=== PATIENT | female | born 1970 | race Caucasian/White ===

== ENCOUNTER 2017-02-16 11:17 | Emergency (ER) | payer OTHER ==
[~2017-02-16] VITALS: Ht 157.5 cm; Wt 110.0 kg
[~2017-02-16 11:17] MED LIST: ALBUAER3 INH; ATOR40TA16 PO; GABA600T PO; LEVO.125 PO; LISI10TA PO; LORA-373 PO; MONT10TA4 PO; NEBULIZER1 MI1; PARO10TA2 PO
[2017-02-16 11:19] VITALS: BP 153/86; PULSE 114; RESP 18; TEMP 98.2; O2SAT 98
[2017-02-16 12:02] LABS: BACTERIA, URINE OCC /hpf; BLOOD, URINE SMALL (NEG); COMMENT (UR) CULT NOT INDICATED; CULTURE IF INDICATED CULT NOT INDICATED; GLUCOSE,URINE NEG (NEG); GRANULAR CAST, URINE 2 /lpf; HYALINE CAST, URINE 14 /lpf (RARE); KETONE, URINE NEG (NEG); MUCUS URINE MANY /lpf (OCC); NITRITE,URINE NEG (NEG); PH, URINE 5.5 (5.0-8.5); SQUAMOUS EPITHELIAL CELL URINE 21 /hpf (0-5); URINE COLOR DARK-YELLOW (YELLW/STRAW)
[2017-02-16] MEDS ORDERED: SODIUM CHLOR 0.9% 1000 ML INJ 1,000 ML IV SCH (12:04)
[2017-02-16 12:12] LABS: AUTOMATED NEUTROPHIL # 7.1 TH/MM3 (1.8-7.7); BASOPHIL # 0.1 TH/MM3 (0-0.2); BASOPHIL % 0.5 % (0.0-2.0); EOSINOPHIL # 0.2 TH/MM3 (0-0.4); EOSINOPHIL % 2.5 % (0.0-4.0); HEMATOCRIT 37.2 % (35.0-46.0); HEMO FLAGS DIFF FINAL; LYMPH % 19.6 % (9.0-44.0); LYMPHOCYTE # 1.9 TH/MM3 (1.0-4.8); MEAN CELL VOLUME 81.9 FL (80.0-100.0); MEAN CORPUSCULAR HEMOGLOBIN 25.9 PG (27.0-34.0); MEAN CORPUSCULAR HGB CONC 31.6 % (32.0-36.0); MONO % 3.5 % (0.0-8.0); NEUT % 73.9 % (16.0-70.0); PLATELET COUNT 332 TH/MM3 (150-450); RED BLOOD COUNT 4.54 MIL/MM3 (4.00-5.30); RED CELL DISTRIBUTION WIDTH 16.4 % (11.6-17.2); WHITE BLOOD COUNT 9.6 TH/MM3 (4.0-11.0)
--- NOTE | 2017-02-16 12:12 | PD ---
HPI Chief Complaint: Flank/Kidney Pain Time Seen by Provider: 12:01 Travel History International Travel<30 days: No Contact w/Intl Traveler<30days: No Traveled to known affect area: No History of Present Illness HPI 46-year-old female complaining of right flank pain with radiation to the right side abdomen. Patient states that the symptoms started 2 days ago. Patient states the pain is severe sharp pain started a right flank area with radiation to the right lower quadrant of the abdomen. Patient denies any dysuria or frequency. Patient denies any vaginal discharge or bleeding. Patient denies any fever chills. Patient denies any chance of being . Patient status post tubal ligation. Patient has history of kidney stone in the past. Patient states that she had surgery by urologist out of the area in the past. On a scale of 1-10 the pain is a 9. PFSH Past Medical History Asthma: Yes Anxiety: Yes High Cholesterol: Yes Hypertension: Yes Kidney Stones: Yes Thyroid Disease: Yes ?: Not Past Surgical History Cholecystectomy: Yes Genitourinary Surgery: Yes (CYSTO X 2) Other Surgery: Yes (THYROIDECTOMY) Social History Alcohol Use: No Tobacco Use: No Substance Use: No Allergies-Medications (Allergen,Severity, Reaction): Coded Allergies: Erythromycin (Verified Allergy, Unknown, childhood, 01/18/17) Penicillin (Verified Allergy, Unknown, childhood allergy, 01/18/17) Sulfa (Verified Allergy, Unknown, swelling all over , 01/18/17) Reported Meds & Prescriptions Reported Meds & Active Scripts Active Synthroid (Levothyroxine Sodium) 125 Mcg Tab 125 Mcg PO DAILY Atorvastatin (Atorvastatin Calcium) 40 Mg Tab 40 Mg PO HS Lorazepam 0.5 Mg Tab 0.5 Mg PO TID PRN Nebulizer 1 Mis Mis 1 Ea .ROUTE DIRECTED Proair Hfa 8.5 GM Inh (Albuterol Sulfate) 90 Mcg/Act Aer 2 Puff INH Q6H PRN 108 mcg/actuation Lisinopril-Hctz 10-12.5 Mg Tab 1 Tab PO DAILY Paroxetine (Paroxetine HCl) 10 Mg Tab 10 Mg PO DAILY Montelukast (Montelukast Sodium) 10 Mg Tab 10 Mg PO HS Gabapentin 600 Mg Tab 600 Mg PO TID Review of Systems General / Constitutional: No: Fever Eyes: No: Visual changes HENT: No: Headaches Cardiovascular: No: Chest Pain or Discomfort Respiratory: No: Shortness of Breath Gastrointestinal: No: Abdominal Pain Genitourinary: No: Dysuria Musculoskeletal: No: Pain Skin: No Rash Neurologic: No: Weakness Psychiatric: No: Depression Endocrine: No: Polydipsia Hematologic/Lymphatic: No: Easy Bruising Physical Exam Narrative GENERAL: Well-nourished, well-developed patient. SKIN: Focused skin assessment warm/dry. HEAD: Normocephalic. EYES: No scleral icterus. No injection or drainage. NECK: Supple, trachea midline. No JVD or lymphadenopathy. CARDIOVASCULAR: Regular rate and rhythm without murmurs, gallops, or rubs. RESPIRATORY: Breath sounds equal bilaterally. No accessory muscle use. GASTROINTESTINAL: Abdomen soft, nondistended. Patient has moderate tenderness on palpation right lower quadrant of the abdomen. No rebound tenderness. No mass. MUSCULOSKELETAL: No cyanosis, or edema. BACK: Patient has moderate tenderness on palpation right flank area and right low quadrant of the abdomen. No rebound tenderness. No mass.. Data Data Last Documented VS Vital Signs Date Time Temp Pulse Resp B/P Pulse Ox O2 Delivery O2 Flow Rate FiO2 02/16/17 11:19 98.2 114 18 153/86 98 Orders Urinalysis - C+S If Indicated (02/16/17 11:28) Complete Blood Count With Diff (02/16/17 11:28) Basic Metabolic Panel (Bmp) (02/16/17 11:28) Iv Access Insert/Monitor (02/16/17 12:04) Ecg Monitoring (02/16/17 12:04) Oximetry (02/16/17 12:04) Morphine Inj (Morphine Inj) (02/16/17 12:15) Ondansetron Inj (Zofran Inj) (02/16/17 12:15) Sodium Chlor 0.9% 1000 Ml Inj (Ns 1000 M (02/16/17 12:04) Ketorolac Inj (Toradol Inj) (02/16/17 12:15) Ct Abd/Pel W/O Iv Contrast (02/16/17 12:31) Labs Laboratory Tests Test 02/16/17 02/16/17 11:35 11:42 Urine Color DARK-YELLOW Urine Turbidity HAZY Urine pH 5.5 Urine Specific [place] 1.035 Urine Protein 30 mg/dL Urine Glucose (UA) NEG mg/dL Urine Ketones NEG mg/dL Urine Occult Blood SMALL Urine Nitrite NEG Urine Bilirubin NEG Urine Urobilinogen 2.0 MG/DL Urine Leukocyte Esterase NEG Urine RBC LESS THAN 1 /hpf Urine WBC 4 /hpf Urine Squamous Epithelial 21 /hpf Cells Urine Bacteria OCC /hpf Urine Hyaline Casts 14 /lpf Urine Granular Casts 2 /lpf Urine Mucus MANY /lpf Microscopic Urinalysis Comment CULT NOT INDICATED White Blood Count 9.6 TH/MM3 Red Blood Count 4.54 MIL/MM3 Hemoglobin 11.8 GM/DL Hematocrit 37.2 % Mean Corpuscular Volume 81.9 FL Mean Corpuscular Hemoglobin 25.9 PG Mean Corpuscular Hemoglobin 31.6 % Concent Red Cell Distribution Width 16.4 % Platelet Count 332 TH/MM3 Mean Platelet Volume 8.1 FL Neutrophils (%) (Auto) 73.9 % Lymphocytes (%) (Auto) 19.6 % Monocytes (%) (Auto) 3.5 % Eosinophils (%) (Auto) 2.5 % Basophils (%) (Auto) 0.5 % Neutrophils # (Auto) 7.1 TH/MM3 Lymphocytes # (Auto) 1.9 TH/MM3 Monocytes # (Auto) 0.3 TH/MM3 Eosinophils # (Auto) 0.2 TH/MM3 Basophils # (Auto) 0.1 TH/MM3 CBC Comment DIFF FINAL Differential Comment Sodium Level 138 MEQ/L Potassium Level 4.2 MEQ/L Chloride Level 103 MEQ/L Carbon Dioxide Level 30.1 MEQ/L Anion Gap 5 MEQ/L Blood Urea Nitrogen 12 MG/DL Creatinine 0.82 MG/DL Estimat Glomerular Filtration 75 ML/MIN Rate Random Glucose 93 MG/DL Calcium Level 9.7 MG/DL [facility] Medical Decision Making Medical Screen Exam Complete: Yes Emergency Medical Condition: Yes Interpretation(s) Last Impressions Abdomen/Pelvis CT 02/16/17 1231 Signed Impressions: Service Date/Time: Thursday, February 16, 2017 13:08 - CONCLUSION: 1. No acute inflammatory process. 2. Punctate nonobstructing left renal calculus. 3. Cholecystectomy. 4. Uterus is slightly heterogeneous. Rudy Ang MD 1355 PM. CBC within normal limit. BMP within normal limits. UA positive for bacteria. Differential Diagnosis Differential diagnosis including nephrolithiasis, pyelonephritis, colitis, appendicitis, ovarian cyst, ovarian torsion, ectopic . Narrative Course 46-year-old female with right flank pain of right lower quadrant abdominal pain. History kidney stone. Normal saline solution 1 25 cc an hour. Morphine 2 mg IV. Toradol 30 mg IV. Zofran 4 mg IV. Diagnosis Primary Impression: Right flank pain Patient Instructions: General Instructions Additional Instructions: Take medications as needed for pain. Follow-up with personal physician and urologist. Return if worse. Med/Other Pt SpecificInfo: Prescription(s) given Scripts Cyclobenzaprine (Flexeril)10 Mg Tab10 Mg PO TID #60 TAB Prov:Kwan Seymour MD 02/16/17 Meloxicam (Mobic)15 Mg Tab15 Mg PO DAILY #20 TAB Prov:Kwan Seymour MD 02/16/17 Disposition: 01 DISCHARGE HOME Condition: Stable Kwan Seymour MD Feb 16, 2017 12:12
[2017-02-16] MEDS ORDERED: ONDANSETRON HCL 4 MG/2 ML VIAL IVP ONE (12:15)
[2017-02-16] MEDS ORDERED: KETOROLAC TROMETHAMINE 30 MG/ML (IVP) VIAL IVP ONE (12:15)
[2017-02-16] MEDS ORDERED: MORPHINE SULFATE 4 MG/ML INJ IV PUSH ONE (12:15)
[2017-02-16 12:20] LABS: BICARBONATE 30.1 MEQ/L (21.0-32.0); POTASSIUM 4.2 MEQ/L (3.5-5.1)
--- NOTE | 2017-02-16 13:41 | RADRPT ---
EXAM DATE/TIME: 02/16/2017 13:08 [facility] COMPARISON: No previous studies available for comparison. INDICATIONS : Right flank pain. ORAL CONTRAST: No oral contrast ingested. RADIATION DOSE: 33.7 CTDIvol (mGy) MEDICAL HISTORY : Renal calculi. Hypertension, Asthma SURGICAL HISTORY : Thyroidectomy. ENCOUNTER: Initial ACUITY: 1 day PAIN SCALE: 8/10 LOCATION: Right flank TECHNIQUE: Volumetric scanning of the abdomen and pelvis was performed. Using automated exposure control and ad justment of the mA and/or kV according to patient size, radiation dose was kept as low as reasonably achievable to obtain optimal diagnostic quality images. FINDINGS: LOWER LUNGS: The visualized lower lungs are clear. LIVER: Homogeneous density without lesion. There is no dilation of the biliary tree. Cholecystectomy clips. SPLEEN: Normal size without lesion. PANCREAS: Within normal limits. KIDNEYS: Normal in size and shape. There is no mass, stone, or hydronephrosis on the right. Punctate nonobstr ucting left renal calculus measuring 1 mm. ADRENAL GLANDS: Within normal limits. VASCULAR: There is no aortic aneurysm. BOWEL/MESENTERY: The stomach, small bowel, and colon demonstrate no acute abnormality. There is no free intraperitone al air or fluid. Normal appendix. ABDOMINAL WALL: Within normal limits. RETROPERITONEUM: There is no lymphadenopathy. BLADDER: No wall thickening or mass. REPRODUCTIVE: Uterus is slightly heterogeneous. INGUINAL: There is no lymphadenopathy or hernia. MUSCULOSKELETAL: Within normal limits for patient age. CONCLUSION: 1. No acute inflammatory process. 2. Punctate nonobstructing left renal calculus. 3. Cholecystectomy. 4. Uterus is slightly heterogeneous. Rudy Ang MD on February 16, 2017 at 13:34 Board Certified Radiologist. This report was verified electronically.
[2017-02-16] MEDS ORDERED: MOBI15TA PO (13:59)
[2017-02-16] MEDS ORDERED: CYCL1TAB29 PO (14:00)
== END 2017-02-16 15:12 | disposition home or self-care (01) ==
LOC: NEPD 11:17
DX: R10.9 Unspecified abdominal pain (principal)
CPT/HCPCS: 74176; 80048; 81001; 85025; 96374; 96375; 99285; J1885; J2270; J2405; J7030

== ENCOUNTER → 2017-03-12 | Outpatient (CLI) | payer OTHER ==
[~2017-03-12] MED LIST changes: +CYCL1TAB29 PO; +MELO-1 PO; +MOBI15TA PO
--- NOTE | 2017-03-12 14:09 | RADRPT ---
EXAM DATE/TIME: 03/12/2017 13:12 [facility] COMPARISON: No previous studies available for comparison. INDICATIONS : Fell on knees 1 month ago, pain with weight bearing and motion. MEDICAL HISTORY : None. SURGICAL HISTORY : None. ENCOUNTER: Initial ACUITY: 1 month PAIN SCORE: 2/10 LOCATION: Right knee. FINDINGS: No definite fractures, or dislocations are identified. No definite lytic or sclerotic lesion is seen . The joint spaces are well maintained. CONCLUSION: Unremarkable study. Andreina Hunter MD on March 12, 2017 at 14:07 Board Certified Radiologist. This report was verified electronically.
--- NOTE | 2017-03-12 15:13 | RADRPT ---
EXAM DATE/TIME: 03/12/2017 13:11 [facility] COMPARISON: No previous studies available for comparison. INDICATIONS : Fell on knees 1 month ago, pain and swelling, difficulty with weight bearing. MEDICAL HISTORY : None. SURGICAL HISTORY : None. ENCOUNTER: Initial ACUITY: 1 month PAIN SCORE: 10/10 LOCATION: Left knee. FINDINGS: No definite fractures, or dislocations are identified. No definite lytic or sclerotic lesion is seen . The joint spaces are well maintained. CONCLUSION: Unremarkable study. Andreina Hunter MD on March 12, 2017 at 15:11 Board Certified Radiologist. This report was verified electronically.
== END ==
LOC: HRAD 12:40
PROVIDERS: ATTEND Family Medicine
DX: M25.562 Pain in left knee (principal); M25.561 Pain in right knee
CPT/HCPCS: 73564

== ENCOUNTER → 2017-05-19 | Outpatient (CLI) | payer OTHER ==
[~2017-05-19] MED LIST changes: -ATOR40TA16 PO; -MOBI15TA PO
--- NOTE | 2017-05-19 11:20 | RADRPT ---
EXAM DATE/TIME: 05/19/2017 10:28 [facility] COMPARISON: No previous studies available for comparison. INDICATIONS : Internal derangement. Patient fell a few moths ago. Has global knee pain and swelling. MEDICAL HISTORY : Carcinoma, thyroid. Hypertension. SURGICAL HISTORY : Cholecystectomy. Thyroidectomy. Lymph nodes removed from underarms. ENCOUNTER: Subsequent ACUITY: 2 months PAIN SCORE: 4/10 LOCATION: Left knee. TECHNIQUE: Multiplanar, multisequence MRI examination was performed without contrast. FINDINGS: There is minimal inhomogeneous marrow in the distal femur and proximal tibia. The the edema in the t ibial epiphysis adjacent to the articular surface could be evidence for contusion. This does extend to the articular surface medial plateau. There is no evidence for joint effusion. The signal intensity in the lateral meniscus is normal. Signal intensity medial meniscus is normal. The anterior cruciate is intact from origin to insertion. The posterior cruciate is intact from origin to insertion. The medial collateral ligament complex is intact. There is very minimal edema at the origin of the lateral collateral ligament complex on the femoral c ondyle. The patellofemoral compartment shows some mild chondral malacia patella medial post facet of the hackett lla. Mild edema is present in the lateral patellar retinaculum. CONCLUSION: Negative for internal derangement. Articular cartilage is reasonably well-preserved with possible bone bruising tibial plateau. Minimal chondra malacia patella medial facet Minimal increased signal lateral patellar retinaculum. Michael Ma MD FACR on May 19, 2017 at 11:13 Board Certified Radiologist. This report was verified electronically.
== END ==
LOC: HRAD 09:57
PROVIDERS: ATTEND Family Medicine
DX: M23.90 Unspecified internal derangement of unspecified knee (principal)
CPT/HCPCS: 73721

== ENCOUNTER 2018-01-19 12:38 | Observation (INO) | payer OTHER ==
[~2018-01-19] VITALS: Ht 157.5 cm; Wt 115.0 kg
[~2018-01-19 12:38] MED LIST changes: +ALBU0.08 NEB; +CYCL10TA PO; -CYCL1TAB29 PO; -LORA-373 PO; +LORA0.5T PO; -MELO-1 PO; +MELO15TA20 PO; +METF500T PO
[2018-01-19 12:52] VITALS: BP 114/64; PULSE 110; RESP 16; TEMP 98.7; O2SAT 96
--- NOTE | 2018-01-19 13:00 | PD ---
HPI Chief Complaint: Service Writer Problem/Complaint Time Seen by Provider: 12:58 Travel History International Travel<30 days: No Contact w/Intl Traveler<30days: No Traveled to known affect area: No History of Present Illness HPI 47-year-old female patient of Dr. Almanzar, with a history of lower abdominal cramping, and intermittent vaginal bleeding for the past 2-1/2 months. Patient states in the last 24 hours she has gotten much worse cramping with increased vaginal bleeding with passing of clots. Patient has been taking progesterone per Dr. Almanzar's office, as well as recent ultrasound showing multiple fibroids. Patient was scheduled for a ureteroscopy on 25 January. Pain currently is 8 out of 10. She has gone through 3-1/2 large pads since [address] Mohamud office, and was referred here for evaluation. Patient denies nausea, vomiting, urinary symptoms, or fever. Cramping is in the right lower pelvic region. Patient is allergic to sulfa, amoxicillin, erythromycin, and penicillin. PFSH Past Medical History Asthma: Yes Anxiety: Yes High Cholesterol: Yes Cerebrovascular Accident: Yes Hypertension: Yes Kidney Stones: Yes Thyroid Disease: Yes ?: Not Past Surgical History Cholecystectomy: Yes Genitourinary Surgery: Yes (CYSTO X 2) Other Surgery: Yes (THYROIDECTOMY) Social History Alcohol Use: No Tobacco Use: No Substance Use: No Allergies-Medications (Allergen,Severity, Reaction): Coded Allergies: amoxicillin (Unverified Allergy, Intermediate, HIVES, 01/19/18) Sulfa (Sulfonamide Antibiotics) (Unverified Allergy, Unknown, swelling all over , 01/19/18) erythromycin base (Unverified Allergy, Unknown, childhood, 01/19/18) penicillin G (Unverified Allergy, Unknown, childhood allergy, 01/19/18) hydromorphone (Verified Adverse Reaction, Mild, ITCHING/FLUSHING OF SKIN, 01/19/18) Reported Meds & Prescriptions Reported Meds & Active Scripts Active Lorazepam 0.5 Mg Tab 0.5 Mg PO TID PRN Albuterol Neb (Albuterol Sulfate) 2.5 Mg/3 Ml Neb 2.5 Mg NEB Q4HR NEB PRN Lisinopril-Hctz 10-12.5 Mg Tab 1 Tab PO DAILY Paroxetine (Paroxetine HCl) 10 Mg Tab 10 Mg PO DAILY Proair Hfa 8.5 GM Inh (Albuterol Sulfate) 90 Mcg/Act Aer 2 Puff INH Q6H PRN 108 mcg/actuation Meloxicam 15 Mg Tab 15 Mg PO DAILY Nebulizer 1 Mis Mis 1 Ea .ROUTE DIRECTED Montelukast (Montelukast Sodium) 10 Mg Tab 10 Mg PO HS Reported Levothyroxine (Levothyroxine Sodium) 150 Mcg Tab 150 Mcg PO DAILY Review of Systems Except as stated in HPI: all other systems reviewed are Neg General / Constitutional: No: Fever Eyes: No: Visual changes HENT: No: Headaches Cardiovascular: No: Chest Pain or Discomfort Respiratory: No: Shortness of Breath Gastrointestinal: No: Abdominal Pain Genitourinary: Positive: Pelvic Pain, Vaginal Bleeding, No: Urgency, Frequency , Dysuria Musculoskeletal: No: Pain Skin: No Rash Neurologic: No: Weakness Psychiatric: No: Depression Endocrine: No: Polydipsia Hematologic/Lymphatic: No: Easy Bruising Physical Exam Narrative GENERAL: Moderately obese patient in moderate discomfort. SKIN: Warm and dry. Normal color. Normal turgor. No diaphoresis. HEAD: Atraumatic. Normocephalic. EYES: Pupils equal and round. No scleral icterus. No injection or drainage. ENT: No nasal bleeding or discharge. Mucous membranes pink and moist. Pharynx is clear. Airways patent. NECK: Trachea midline. Supple and nontender. CARDIOVASCULAR: Regular rate and rhythm. RESPIRATORY: No accessory muscle use. Clear to auscultation. Breath sounds equal bilaterally. GASTROINTESTINAL: Abdomen soft, moderate nonspecific suprapubic discomfort with palpation, nondistended. No CVA tenderness. Hepatic and splenic margins not palpable. MUSCULOSKELETAL: Extremities without clubbing, cyanosis, or edema. No obvious deformities. NEUROLOGICAL: Awake and alert. No obvious cranial nerve deficits. Motor grossly within normal limits. Five out of 5 muscle strength in the arms and legs. Normal speech. PSYCHIATRIC: Appropriate mood and affect; insight and judgment normal. Data Data Last Documented VS Vital Signs Date Time Temp Pulse Resp B/P (MAP) Pulse Ox O2 Delivery O2 Flow Rate FiO2 01/19/18 14:55 99 16 136/63 (87) 100 Room Air 01/19/18 12:52 98.7 Orders Orders Complete Blood Count With Diff (01/19/18 13:06) Comprehensive Metabolic Panel (01/19/18 13:06) Iv Access Insert/Monitor (01/19/18 13:06) Ecg Monitoring (01/19/18 13:06) Sodium Chloride 0.9% Flush (Ns Flush) (01/19/18 13:15) Sodium Chlor 0.9% 1000 Ml Inj (Ns 1000 M (01/19/18 13:06) Ondansetron Odt (Zofran Odt) (01/19/18 13:15) Type And Screen (01/19/18 13:06) Red Blood Cells (Rbc) (01/19/18 13:06) Morphine Inj (Morphine Inj) (01/19/18 13:15) Hydromorphone Pf Inj (Dilaudid Pf Inj) (01/19/18 15:00) Medroxyprogesterone Acetate (Provera) (01/19/18 15:00) Hydromorphone Pf Inj (Dilaudid Pf Inj) (01/19/18 15:15) Diphenhydramine Inj (Benadryl Inj) (01/19/18 15:45) Admit Order (Ed Use Only) (01/19/18 15:55) Labs Laboratory Tests Test 01/19/18 13:25 White Blood Count 10.5 TH/MM3 Red Blood Count 4.50 MIL/MM3 Hemoglobin 11.6 GM/DL Hematocrit 36.2 % Mean Corpuscular Volume 80.4 FL Mean Corpuscular Hemoglobin 25.8 PG Mean Corpuscular Hemoglobin Concent 32.1 % Red Cell Distribution Width 15.9 % Platelet Count 375 TH/MM3 Mean Platelet Volume 8.2 FL Neutrophils (%) (Auto) 76.3 % Lymphocytes (%) (Auto) 17.1 % Monocytes (%) (Auto) 3.2 % Eosinophils (%) (Auto) 2.5 % Basophils (%) (Auto) 0.9 % Neutrophils # (Auto) 8.0 TH/MM3 Lymphocytes # (Auto) 1.8 TH/MM3 Monocytes # (Auto) 0.3 TH/MM3 Eosinophils # (Auto) 0.3 TH/MM3 Basophils # (Auto) 0.1 TH/MM3 CBC Comment DIFF FINAL Differential Comment Blood Urea Nitrogen 13 MG/DL Creatinine 0.83 MG/DL Random Glucose 129 MG/DL Total Protein 7.8 GM/DL Albumin 3.4 GM/DL Calcium Level 9.3 MG/DL Alkaline Phosphatase 105 U/L Aspartate Amino Transf (AST/SGOT) 8 U/L Alanine Aminotransferase (ALT/SGPT) 20 U/L Total Bilirubin 0.2 MG/DL Sodium Level 139 MEQ/L Potassium Level 4.0 MEQ/L Chloride Level 105 MEQ/L Carbon Dioxide Level 26.0 MEQ/L Anion Gap 8 MEQ/L Estimat Glomerular Filtration Rate 73 ML/MIN MDM Medical Decision Making Medical Screen Exam Complete: Yes Emergency Medical Condition: Yes Differential Diagnosis Irregular uterine bleeding. Fibroids. Passing of clots. Pelvic pain. Narrative Course Patient appears medically stable at time of exam. Labs ordered including CBC, CMP, coagulation studies, and urinalysis. IV access is obtained, and patient is given 1000 mL of normal saline bolus. Patient is given 4 mg morphine IV as well as 4 mg Zofran ODT p.o. Type and screen of 2 units is ordered. Calls placed to Dr. Batista office to discuss the patient. CBC shows no significant anemia with normal hemoglobin of 11.6, hematocrit 36.2. Platelets are normal at 375. There is no significant white count. CMP is unremarkable except for random glucose of 129, GFR 73, AST is 80 otherwise no significant findings. Patient is given Dilaudid 1 mg IV. Patient is given 10 mg medroxyprogesterone p.o. Page is sent for Dr. Almanzar for call back. Patient is discussed with Dr. Almanzar, who recommends admission for the patient and possible D&C this evening. Patient is made n.p.o. and admitted. Diagnosis Primary Impression: Abnormal vaginal bleeding Admitting Information Admitting Physician Requests: Admit Condition: Stable Arden Stout January 19, 2018 13:00
[2018-01-19] MEDS ORDERED: SODIUM CHLOR 0.9% 1000 ML INJ 1,000 ML IV ONE (13:06)
[2018-01-19] MEDS ORDERED: MORPHINE SULFATE 4 MG/ML INJ IV PUSH ONE (13:15)
[2018-01-19] MEDS ORDERED: ONDANSETRON ODT 4 MG TAB PO ONE (13:15)
[2018-01-19] MEDS ORDERED: SODIUM CHLORIDE 0.9% FLUSH 10 ML FLUSH IVF PRN (13:15)
[2018-01-19 13:24] VITALS: BP 122/59; PULSE 94; RESP 16; O2SAT 99
[2018-01-19 13:43] LABS: BASOPHIL # 0.1 TH/MM3 (0-0.2); BASOPHIL % 0.9 % (0.0-2.0); EOSINOPHIL # 0.3 TH/MM3 (0-0.4); EOSINOPHIL % 2.5 % (0.0-4.0); HEMATOCRIT 36.2 % (35.0-46.0); HEMOGLOBIN 11.6 GM/DL (11.6-15.3); LYMPH % 17.1 % (9.0-44.0); LYMPHOCYTE # 1.8 TH/MM3 (1.0-4.8); MEAN CELL VOLUME 80.4 FL (80.0-100.0); MEAN CORPUSCULAR HEMOGLOBIN 25.8 PG (27.0-34.0); MEAN CORPUSCULAR HGB CONC 32.1 % (32.0-36.0); MEAN PLATELET VOLUME 8.2 FL (7.0-11.0); MONO % 3.2 % (0.0-8.0); MONOCYTE # 0.3 TH/MM3 (0-0.9); NEUT % 76.3 % (16.0-70.0); PLATELET COUNT 375 TH/MM3 (150-450); RED CELL DISTRIBUTION WIDTH 15.9 % (11.6-17.2); WHITE BLOOD COUNT 10.5 TH/MM3 (4.0-11.0)
[2018-01-19 14:06] LABS: ALBUMIN 3.4 GM/DL (3.4-5.0); AST (GOT) 8 U/L (15-37); BLOOD UREA NITROGEN 13 MG/DL (7-18); CALCIUM 9.3 MG/DL (8.5-10.1); CHLORIDE 105 MEQ/L (98-107); CREATININE 0.83 MG/DL (0.50-1.00); GLOMERULAR FILTRATION RATE 73 ML/MIN (>89); GLUCOSE,RANDOM 129 MG/DL (74-106); SODIUM (NA) 139 MEQ/L (136-145)
[2018-01-19 14:08] LABS: ALT (GPT) 20 U/L (10-53)
[2018-01-19 14:09] LABS: ALKALINE PHOSPHATASE 105 U/L (45-117); TOTAL BILIRUBIN ADULT 0.2 MG/DL (0.2-1.0); TOTAL PROTEIN 7.8 GM/DL (6.4-8.2)
[2018-01-19 14:55] VITALS: BP_SYST 127; BP_SYST 136; BP_DIAS 63; BP_DIAS 65; PULSE 99; RESP 16; O2SAT 100
[2018-01-19] MEDS ORDERED: HYDROmorphone HCL PF 1 MG/ML VIAL IV PUSH ONE (15:00)
[2018-01-19] MEDS ORDERED: medroxyPROGESTERone ACETATE 10 MG TAB PO ONE (15:00)
[2018-01-19] MEDS ORDERED: HYDROmorphone HCL PF 2 MG/ML VIAL IV PUSH ONE (15:15)
[2018-01-19] MEDS ORDERED: LEVO150T7 PO (15:34)
[2018-01-19] MEDS ORDERED: diphenhydrAMINE HCL 50 MG/ML VIAL IV PUSH ONE (15:45)
[2018-01-19 19:54] VITALS: BP 111/59; PULSE 86; RESP 16; O2SAT 98
[2018-01-19 20:18] VITALS: BP 115/95; PULSE 98; RESP 16; TEMP 98.1; O2SAT 98
[2018-01-19] MEDS: ACETAMINOPHEN/HYDROcodone 325 MG/7.5 MG TAB PO PRN (20:59)
[2018-01-19] MEDS ORDERED: ZOLPIDEM TARTRATE 5 MG TAB PO PRN (21:00)
[2018-01-20] VITALS: BP 97/52; PULSE 77; RESP 20; TEMP 98.1; O2SAT 97
[2018-01-20 04:00] VITALS: BP 118/56; PULSE 84; RESP 20; TEMP 98.2; O2SAT 98
[2018-01-20] MEDS: ACETAMINOPHEN/HYDROcodone 325 MG/7.5 MG TAB PO PRN ×2 (06:15→11:52)
[2018-01-20 08:06] LABS: AUTOMATED NEUTROPHIL # 6.3 TH/MM3 (1.8-7.7); BASOPHIL # 0.1 TH/MM3 (0-0.2); BASOPHIL % 0.9 % (0.0-2.0); EOSINOPHIL # 0.3 TH/MM3 (0-0.4); EOSINOPHIL % 3.7 % (0.0-4.0); HEMATOCRIT 33.4 % (35.0-46.0); HEMOGLOBIN 10.7 GM/DL (11.6-15.3); LYMPH % 19.2 % (9.0-44.0); LYMPHOCYTE # 1.6 TH/MM3 (1.0-4.8); MEAN CELL VOLUME 80.4 FL (80.0-100.0); MEAN CORPUSCULAR HEMOGLOBIN 25.6 PG (27.0-34.0); MEAN CORPUSCULAR HGB CONC 31.9 % (32.0-36.0); MEAN PLATELET VOLUME 8.2 FL (7.0-11.0); MONO % 2.6 % (0.0-8.0); MONOCYTE # 0.2 TH/MM3 (0-0.9); NEUT % 73.6 % (16.0-70.0); PLATELET COUNT 300 TH/MM3 (150-450); RED BLOOD COUNT 4.16 MIL/MM3 (4.00-5.30); WHITE BLOOD COUNT 8.5 TH/MM3 (4.0-11.0)
[2018-01-20 08:46] VITALS: BP 112/52; PULSE 86; RESP 18; TEMP 98.3; O2SAT 97
[2018-01-20 11:41] VITALS: BP 109/63; PULSE 82; RESP 18; TEMP 98.2; O2SAT 98
[2018-01-20] MEDS ORDERED: FAMOTIDINE 20 MG/2 ML VIAL ONE (12:33)
[2018-01-20] MEDS ORDERED: OXYTOCIN 10 UNIT/ML AMP ONE (12:33)
[2018-01-20] MEDS ORDERED: METOCLOPRAMIDE HCL 10 MG/2 ML VIAL ONE (12:33)
[2018-01-20] MEDS ORDERED: DO NOT ADM ANY ANTICOAGULANT DRUGS PRN (13:30)
[2018-01-20] MEDS ORDERED: *morphine SULFATE 10 MG/ML PERIprocedure ONLY ONE (13:42)
[2018-01-20] MEDS ORDERED: ONDANSETRON HCL 4 MG/2 ML VIAL ONE (13:43)
--- NOTE | 2018-01-20 14:24 | MP ---
cc: Zandra Malone MD DATE OF OPERATION: 01/20/2018 PREOPERATIVE DIAGNOSES: 1. Menometrorrhagia, severe. 2. Mild anemia. POSTOPERATIVE DIAGNOSES: 1. Menometrorrhagia, severe. 2. Mild anemia. PROCEDURE PERFORMED: Examination under anesthesia, hysteroscopic exam, dilation and curettage. ANESTHESIA: General. SURGEON: Zandra Malone MD FINDINGS: Examination under anesthesia: Vagina was clean with blood clots; however, the cervix was open to a fingertip and the uterus was mildly enlarged. The adnexa negative for masses. Hysteroscopic exam revealed an enlarged uterine cavity with no focal discrete masses or lesions. The hysteroscopic exam was suboptimal because of the heavy bleeding. The D and C revealed a large amount of tissue. The uterus sounded to 10 cm. COMPLICATIONS: None. COUNTS: Correct. ESTIMATED BLOOD LOSS: Minimal. CONDITION: The patient tolerated the procedure well, went to the recovery room in good condition. OPERATIVE PROCEDURE: The patient was taken to the operating room and identified by name band and verbally, given a general anesthetic, carefully placed in dorsal lithotomy position, prepped and draped in the usual sterile manner. Then had our timeout and we proceeded with examination under anesthesia after the urinary bladder was drained with an in-and-out catheterization. The weighted speculum was placed in the vagina. The anterior lip of the cervix was grasped with a single-tooth tenaculum. The hysteroscope was inserted, but the cervix was quite open and we could not get a very good visualization. We then pulled the hysteroscope out and, with a #1 sharp curette, curetted the entire endometrial surface briskly and then we removed all the instruments. She tolerated the procedure well, went to the recovery room in good condition. Zandra Malone MD RJV/DAFNE , 02:08 PM , 02:24 PM
[2018-01-20 16:17] VITALS: BP 127/61; PULSE 93; RESP 20; TEMP 98.2; O2SAT 96
[2018-01-20] MEDS ORDERED: ONDANSETRON HCL 4 MG/2 ML VIAL IV PUSH ONE (18:44)
[2018-01-20] MEDS ORDERED: PROPOFOL 200 MG/20 ML AMP IV ONE (18:44)
[2018-01-20] MEDS ORDERED: LIDOCAINE HCL 1% PF 5 ML SYRINGE OTHER ONE (18:44)
[2018-01-20] MEDS ORDERED: DEXAMETHASONE SOD PHOS 4 MG/ML VIAL IV ONE (18:44)
[2018-01-20] MEDS ORDERED: KETOROLAC TROMETHAMINE 30 MG/ML (IVP) VIAL IV PUSH ONE (18:44)
== END 2018-01-20 18:45 | disposition home or self-care (01) ==
LOC: NEPD 12:38 → INTOOBSV 15:58 → NEDA 15:58 → NEPFCDU 19:57
PROVIDERS: ADMIT Obstetrics & Gynecology; ATTEND Obstetrics & Gynecology
DX: D25.9 Leiomyoma of uterus, unspecified (principal); N92.1 Excessive and frequent menstruation with irregular cycle; D64.9 Anemia, unspecified; E07.9 Disorder of thyroid, unspecified; F41.9 Anxiety disorder, unspecified; I10 Essential (primary) hypertension; J45.909 Unspecified asthma, uncomplicated; E78.00 Pure hypercholesterolemia, unspecified; Z86.73 Personal history of transient ischemic attack (TIA), and cerebral infarction without residual deficits; Z87.442 Personal history of urinary calculi; Z88.2 Allergy status to sulfonamides
CPT/HCPCS: 00952; 58558; 80053; 85025; 86850; 86900; 86901; 86920; 88305; 96361; 96374; 96375; 99285; G0378; J1100; J1170; J1200; J1885; J2270; J2405; J2765; J3010; J7030; J2590